=== PATIENT | male | born 1995 | race African-American/Black ===

== ENCOUNTER 2021-07-09 01:18 | Emergency (ER) | payer OTHER ==
[~2021-07-09] VITALS: Ht 190.5 cm; Wt 80.5 kg
[2021-07-09 01:59] LABS: BASOPHILS % (AUTO) 0.5 % (0.0-2.0); EOSINOPHILS % (AUTO) 1.7 % (1.0-6.0); HEMATOCRIT 42.4 % (41-53); HEMOGLOBIN 13.7 g/dL (13.5-17.5); LYMPHOCYTES # (AUTO) 2.2 K/uL (1.0-4.8); LYMPHOCYTES % (AUTO) 28.3 % (22.0-44.0); MEAN CORPUSCULAR HEMOGLOBIN 27.7 pg (26.0-34.0); MEAN CORPUSCULAR HGB CONC 32.4 G/dL (31.0-37.0); MEAN CORPUSCULAR VOLUME 86 fL (80-100); MONOCYTES # (AUTO) 0.6 K/uL (0.1-1.0); MONOCYTES % (AUTO) 7.6 % (2.0-9.0); NEUTROPHILS # (AUTO) 4.8 K/uL (1.8-7.7); NEUTROPHILS % (AUTO) 61.9 % (40.0-70.0); PLATELET COUNT (AUTO) 171 K/uL (150-450); RED BLOOD CELL COUNT(AUTO) 4.96 MIL/uL (4.50-5.90); RED CELL DISTRIBUTION WIDTH 15.1 % (11.5-14.5)
[2021-07-09 02:03] LABS: ANION GAP 12 mmol/L (8-16); CALCIUM, TOTAL 8.3 mg/dL (8.8-10.5); CARBON DIOXIDE 24 mmol/L (22-29); CHLORIDE 106 mmol/L (98-107); CREATININE 0.97 mg/dL (0.60-1.30); GLOMERULAR FILTR. RATE CALC > 60 mL/min (>60); GLUCOSE,RANDOM 77 mg/dL (70-110); POTASSIUM 3.5 mmol/L (3.5-5.1); SODIUM SERUM 142 mmol/L (136-145); UREA NITROGEN, BLOOD 8 mg/dL (7-18)
[2021-07-09 02:08] LABS: ALANINE AMINOTRANSFERASE 36 U/L (12-78); ALBUMIN 3.6 g/dL (3.4-5.0); ALKALINE PHOSPHATASE 103 U/L (46-116); ASPARTATE AMINOTRANSFERASE 43 U/L (15-37); BILIRUBIN,TOTAL 0.3 mg/dL (0.1-1.0); TOTAL PROTEIN, SERUM 6.9 g/dL (6.4-8.2)
[2021-07-09] MEDS ORDERED: PERTUSS(ACELL),DIPH,TET VAC/PF 0.5 ML SYRINGE IM. ONE (02:15)
[2021-07-09 05:42] VITALS: BP 120/20
== END 2021-07-09 06:23 | disposition home or self-care (01) ==
LOC: EMS 01:18
DX: F10.129 Alcohol abuse with intoxication, unspecified (principal); F17.210 Nicotine dependence, cigarettes, uncomplicated; Y90.6 Blood alcohol level of 120-199 mg/100 ml
CPT/HCPCS: 36415; 80053; 85025; 90471; 90715; 99283; G0480

== ENCOUNTER 2021-07-09 08:49 | Emergency (ER) | payer OTHER ==
[~2021-07-09] VITALS: Ht 170.2 cm; Wt 75.0 kg
[2021-07-09 08:50] VITALS: BP 138/72
[2021-07-09] MEDS ORDERED: AMMONIA 1 EA AMP IH ONE (09:18)
== END 2021-07-09 09:15 | disposition home or self-care (01) ==
LOC: EMS 09:01
DX: Z00.00 Encounter for general adult medical examination without abnormal findings (principal); F10.10 Alcohol abuse, uncomplicated; F17.210 Nicotine dependence, cigarettes, uncomplicated; Z59.0 Homelessness; Y90.9 Presence of alcohol in blood, level not specified
CPT/HCPCS: 99283

== ENCOUNTER 2024-01-31 07:15 | Inpatient (IN) | payer MEDICAID, OTHER ==
[~2024-01-31] VITALS: Ht 177.8 cm; Wt 81.0 kg
[2024-01-31 08:08] LABS: BASOPHILS % (AUTO) 0.6 % (0.0-2.0); EOSINOPHILS % (AUTO) 0.5 % (1.0-6.0); HEMATOCRIT 38.8 % (41-53); HEMOGLOBIN 12.8 g/dL (13.5-17.5); LYMPHOCYTES # (AUTO) 1.5 K/uL (1.0-4.8); LYMPHOCYTES % (AUTO) 11.7 % (22.0-44.0); MEAN CORPUSCULAR HEMOGLOBIN 27.2 pg (26.0-34.0); MEAN CORPUSCULAR HGB CONC 32.9 G/dL (31.0-37.0); MEAN CORPUSCULAR VOLUME 83 fL (80-100); MONOCYTES # (AUTO) 0.9 K/uL (0.1-1.0); MONOCYTES % (AUTO) 7.2 % (2.0-9.0); NEUTROPHILS # (AUTO) 10.5 K/uL (1.8-7.7); PLATELET COUNT (AUTO) 336 K/uL (150-450); RED CELL DISTRIBUTION WIDTH 14.4 % (11.5-14.5); WHITE BLOOD COUNT (AUTO) 13.1 K/uL (4.5-11.0)
[2024-01-31 08:18] LABS: ANION GAP 10 mmol/L (8-16); CARBON DIOXIDE 29 mmol/L (22-29); CHLORIDE 96 mmol/L (98-107); CREATININE 0.98 mg/dL (0.60-1.30); GLOMERULAR FILTR. RATE CALC > 60 mL/min (>60); GLUCOSE,RANDOM 67 mg/dL (70-110); POTASSIUM 4.7 mmol/L (3.5-5.1); SODIUM SERUM 135 mmol/L (136-145); UREA NITROGEN, BLOOD 15 mg/dL (7-18)
[2024-01-31 08:19] LABS: ALCOHOL, BLOOD (SERUM) < 3 mg/dL (0-10)
[2024-01-31 08:24] LABS: ALANINE AMINOTRANSFERASE 59 U/L (12-78); ALBUMIN 3.6 g/dL (3.4-5.0); ALKALINE PHOSPHATASE 171 U/L (46-116); ASPARTATE AMINOTRANSFERASE 40 U/L (15-37); BILIRUBIN,TOTAL 0.6 mg/dL (0.1-1.0); TOTAL PROTEIN, SERUM 8.4 g/dL (6.4-8.2)
[2024-01-31 08:25] LABS: COVID AG,FIA SOURCE NASAL SWAB
[2024-01-31] MEDS ORDERED: ZOLPIDEM TARTRATE 10 MG TABLET PO PRN (08:30)
[2024-01-31] MEDS: HALOPERIDOL LACTATE 5 MG/ML VIAL IM ONE (08:39)
[2024-01-31] MEDS: LORazepam 2 MG/ML VIAL IM ONE (08:40)
[2024-01-31] MEDS: DiphenhydrAMINE HCL 50 MG/ML VIAL IM ONE (08:40)
[2024-01-31 08:49] LABS: SARS-COV2 (COVID) ANTIGEN,FIA Negative (Negative)
[2024-02-01] MEDS ORDERED: ACETAMINOPHEN 500 MG TABLET ONE (00:17)
[2024-02-01] MEDS: ACETAMINOPHEN 500 MG TABLET PO ONE (00:20)
[2024-02-01] MEDS: LORazepam 2 MG TABLET PO PRN (00:20)
[2024-02-01] MEDS: HALOPERIDOL 5 MG TABLET PO PRN (00:20)
[2024-02-01] MEDS: SODIUM CHLORIDE 0.9% 2,450 ML IV ONE (03:45)
[2024-02-01] MEDS ORDERED: 0.9% SODIUM CHLORIDE 10 ML SYRINGE IVP PRN (03:45)
[2024-02-01 03:56] LABS: GLUCOMETER DEV NAME(LOC) ER.6; GLUCOSE,POINT OF CARE 119 MG/DL (70-110)
[2024-02-01 04:31] LABS: BASOPHILS % (AUTO) 0.5 % (0.0-2.0); EOSINOPHILS % (AUTO) 1.3 % (1.0-6.0); HEMATOCRIT 38.2 % (41-53); HEMOGLOBIN 12.7 g/dL (13.5-17.5); LYMPHOCYTES # (AUTO) 1.8 K/uL (1.0-4.8); LYMPHOCYTES % (AUTO) 15.7 % (22.0-44.0); MEAN CORPUSCULAR HEMOGLOBIN 27.3 pg (26.0-34.0); MEAN CORPUSCULAR HGB CONC 33.3 G/dL (31.0-37.0); MEAN CORPUSCULAR VOLUME 82 fL (80-100); MONOCYTES % (AUTO) 8.5 % (2.0-9.0); NEUTROPHILS # (AUTO) 8.5 K/uL (1.8-7.7); PLATELET COUNT (AUTO) 351 K/uL (150-450); RED BLOOD CELL COUNT(AUTO) 4.64 MIL/uL (4.50-5.90); RED CELL DISTRIBUTION WIDTH 14.4 % (11.5-14.5); WHITE BLOOD COUNT (AUTO) 11.5 K/uL (4.5-11.0)
[2024-02-01 04:42] LABS: INR 0.9 (0.9-1.1); PROTHROMBIN TIME 9.8 SEC (9.4-11.6)
[2024-02-01 04:49] LABS: TROPONIN I-HIGH SENSITIVITY 7 ng/L (<76)
[2024-02-01 04:50] LABS: LACTIC ACID 1.1 mmol/L (0.4-2.0)
[2024-02-01 04:53] LABS: B-TYPE NATRIURETIC PEPTIDE 5 pg/mL (0-100)
[2024-02-01 05:08] LABS: ALANINE AMINOTRANSFERASE 46 U/L (12-78); ALKALINE PHOSPHATASE 148 U/L (46-116); ASPARTATE AMINOTRANSFERASE 34 U/L (15-37); BILIRUBIN,TOTAL 0.2 mg/dL (0.1-1.0); CALCIUM, TOTAL 9.4 mg/dL (8.8-10.5); CHLORIDE 100 mmol/L (98-107); CREATINE KINASE, TOTAL ONLY 852 U/L (39-308); CREATININE 0.89 mg/dL (0.60-1.30); GLOMERULAR FILTR. RATE CALC > 60 mL/min (>60); GLUCOSE,RANDOM 106 mg/dL (70-110); POTASSIUM 4.3 mmol/L (3.5-5.1); SODIUM SERUM 136 mmol/L (136-145); TOTAL PROTEIN, SERUM 7.5 g/dL (6.4-8.2); UREA NITROGEN, BLOOD 14 mg/dL (7-18)
[2024-02-01 05:13] LABS: ANION GAP 8 mmol/L (8-16); CARBON DIOXIDE 28 mmol/L (22-29)
[2024-02-01] MEDS: LORazepam 2 MG/ML VIAL IM ONE (06:50)
[2024-02-01] MEDS: DiphenhydrAMINE HCL 50 MG/ML VIAL IM ONE (06:50)
[2024-02-01] MEDS: HALOPERIDOL LACTATE 5 MG/ML VIAL IM ONE (06:50)
[2024-02-01] MEDS ORDERED: SODIUM CHLORIDE 0.9% 100 ML ONE (07:54)
[2024-02-01] MEDS ORDERED: IOHEXOL 350 MG/ML 100 ML VIAL ONE (07:54)
[2024-02-01] MEDS: CEFTAROLINE 600 MG/D5W 250 ML IV ONE (12:18)
[2024-02-01] MEDS: PERTUSS(ACELL),DIPH,TET/PF 0.5 ML SYRINGE [ADULT] IM. ONE (12:33)
[2024-02-01 13:34] VITALS: BP 128/97; PULSE 99; RESP 20; TEMP 98.4
[2024-02-01] MEDS ORDERED: BISACODYL 10 MG RECTAL RECTAL SUPPOSITORY PR PRN (14:30)
[2024-02-01] MEDS ORDERED: ONDANSETRON HCL 4 MG/2 ML VIAL IVP PRN (14:30)
[2024-02-01] MEDS ORDERED: ZOLPIDEM TARTRATE 5 MG TABLET PO PRN (14:30)
[2024-02-01] MEDS ORDERED: MORPHINE SULFATE 2 MG/ML SYRINGE IVP PRN (14:30)
[2024-02-01] MEDS ORDERED: MAGNESIUM HYDROXIDE SUSPENSION 30 ML UDCUP PO PRN (14:30)
[2024-02-01] MEDS ORDERED: ACETAMINOPHEN 325 MG TABLET PO PRN (14:30)
[2024-02-01] MEDS: HEPARIN SODIUM,PORCINE 5,000 UNITS/ML VIAL SQ SCH (16:00)
[2024-02-01] MEDS: DOCUSATE SODIUM 100 MG CAPSULE PO SCH (20:26)
[2024-02-01] MEDS: HYDROCODONE/ACETAMINOPHEN 5-325 MG TABLET PO PRN (21:08)
[2024-02-02 01:49] VITALS: BP 141/91; PULSE 120; RESP 19; TEMP 98.3
[2024-02-02 07:24] LABS: AMPHET/METH SCREEN,URINE POSITIVE (NEGATIVE); BARBITURATE SCREEN, URINE NEGATIVE (NEGATIVE); BENZODIAZEPINES SCREEN,URINE NEGATIVE (NEGATIVE); CANNABINOID SCREEN,URINE NEGATIVE (NEGATIVE); COCAINE SCREEN,URINE NEGATIVE (NEGATIVE); METHADONE SCREEN, URINE NEGATIVE (NEGATIVE); OPIATE SCREEN,URINE POSITIVE (NEGATIVE); PH,URINE DRUG SCREEN 6.5 (5.0-8.0); PHENCYCLIDINE SCREEN,URINE NEGATIVE (NEGATIVE)
[2024-02-02 07:26] LABS: ALCOHOL, URINE DRUG SCREEN NEGATIVE (NEGATIVE)
[2024-02-02 07:56] VITALS: BP 134/73; PULSE 100; RESP 18; TEMP 97.6
[2024-02-02] MEDS: PANTOPRAZOLE SODIUM 40 MG DR TABLET PO SCH (08:28)
[2024-02-02] MEDS: AMOX TR/POT CLAV 875 MG/125 MG TABLET PO SCH (11:45)
[2024-02-02 15:21] VITALS: BP 143/90; PULSE 100; RESP 18; TEMP 97
[2024-02-02] MEDS ORDERED: DiphenhydrAMINE HCL 50 MG/ML VIAL ONE (18:13)
[2024-02-02] MEDS ORDERED: HALOPERIDOL LACTATE 5 MG/ML VIAL ONE ×2 (18:13→18:14)
[2024-02-02] MEDS ORDERED: LORazepam 2 MG/ML VIAL ONE (18:13)
[2024-02-02] MEDS: HALOPERIDOL LACTATE 5 MG/ML VIAL IM ONE (18:16)
[2024-02-02] MEDS: DiphenhydrAMINE HCL 50 MG/ML VIAL IM ONE (18:16)
[2024-02-02] MEDS: LORazepam 2 MG/ML VIAL IM ONE (18:16)
[2024-02-02 19:37] VITALS: BP 149/99; PULSE 100; RESP 20; TEMP 98.3
[2024-02-03] MEDS ORDERED: CHLORHEXIDINE GLUCONATE 4% 118 ML TOPICAL LIQUID TP SCH (11:30)
== END 2024-02-04 12:22 | disposition left against medical advice (07) | DRG 384 ==
LOC: EMS 07:16 → B3A 02-01 03:00 → UNDOADMIN 02-01 03:00 → 6S 02-01 12:05
PROVIDERS: ADMIT Internal Medicine; ATTEND Internal Medicine
DX: S01.00XA Unspecified open wound of scalp, initial encounter (principal); F11.90 Opioid use, unspecified, uncomplicated; F20.9 Schizophrenia, unspecified; F15.10 Other stimulant abuse, uncomplicated; F94.0 Selective mutism; X58.XXXA Exposure to other specified factors, initial encounter; Z53.20 Procedure and treatment not carried out because of patient's decision for unspecified reasons; Z53.29 Procedure and treatment not carried out because of patient's decision for other reasons; Z20.822 Contact with and (suspected) exposure to COVID-19; Z87.891 Personal history of nicotine dependence; Y93.89 Activity, other specified; Y92.89 Other specified places as the place of occurrence of the external cause; Y99.8 Other external cause status
CPT/HCPCS: 70470; 71045; 80053; 80307; 82550; 82962; 83605; 83880; 84145; 84484; 85025; 85610; 87040; 87070; 87186; 87205; 90715; 93005; 99285; G0480; J0712; J1200; J1630; J1644; J2060; J7030; J7050; Q9967; 36415-L1; 36415-TC

== ENCOUNTER 2024-03-31 15:20 | Inpatient (IN) | payer MEDICAID ==
[~2024-03-31] VITALS: Ht 172.7 cm; Wt 78.0 kg
[2024-03-31] MEDS ORDERED: ZOLPIDEM TARTRATE 10 MG TABLET PO PRN (20:00)
[2024-03-31] MEDS ORDERED: MAGNESIUM HYDROXIDE SUSPENSION 30 ML UDCUP PO PRN (20:00)
[2024-03-31] MEDS ORDERED: TUBERCULIN, PURIFIED PROTEIN DERIVATIVE 5 TU/0.1 ML SYRINGE ID ONE (20:00)
[2024-03-31] MEDS ORDERED: HydrOXYzine PAMOATE 50 MG CAPSULE PO PRN (20:00)
[2024-03-31] MEDS ORDERED: OLANZapine 5 MG RAPDIS TABLET PO PRN (20:00)
[2024-03-31] MEDS ORDERED: MAG HYDROX/ALUMINUM HYD/SIMETH ES 30 ML SUSPENSION UDCUP PO PRN (20:00)
[2024-03-31] MEDS ORDERED: ACETAMINOPHEN 325 MG TABLET PO PRN (20:00)
[2024-03-31] MEDS ORDERED: PROMETHAZINE HCL 25 MG TABLET PO PRN (20:00)
[2024-03-31] MEDS ORDERED: LORazepam 2 MG TABLET PO PRN (20:00)
[2024-03-31] MEDS ORDERED: GuaiFENesin/D-METHORPHAN [SUGAR-FREE] 200-20MG/10 ML SYRUP UDCUP PO PRN (20:00)
[2024-03-31] MEDS ORDERED: LOPERAMIDE HCL 2 MG CAPSULE PO PRN (20:00)
[2024-03-31] MEDS: DIVALPROEX SODIUM 500 MG ER TABLET PO SCH (21:00)
[2024-03-31 23:49] VITALS: RESP 18
[2024-04-01] MEDS: OMEGA-3/DHA/EPA/FISH OIL 1,000 MG CAPSULE PO SCH (09:00)
[2024-04-01] MEDS: FOLIC ACID 1 MG TABLET PO SCH (09:00)
[2024-04-01] MEDS: THIAMINE 100 MG TABLET PO SCH (09:00)
[2024-04-01] MEDS: NALTREXONE HCL 50 MG TABLET PO SCH (09:00)
[2024-04-01 09:12] VITALS: RESP 18
[2024-04-01] MEDS: MULTIVITAMINS WITH MINERALS, THERAPEUTIC TABLET PO SCH (11:48)
[2024-04-01] MEDS: LORazepam 2 MG/ML VIAL IM ONE (14:05)
[2024-04-01] MEDS: DiphenhydrAMINE HCL 50 MG/ML VIAL IM ONE (14:05)
[2024-04-01] MEDS: HALOPERIDOL LACTATE 5 MG/ML VIAL IM ONE (14:06)
[2024-04-01 20:21] VITALS: RESP 18
[2024-04-01] MEDS: MELATONIN 5 MG TABLET PO SCH (21:00)
[2024-04-01] MEDS: OLANZapine 5 MG RAPDIS TABLET PO SCH (21:00)
[2024-04-01] MEDS: CEPHALEXIN MONOHYDRATE 500 MG CAPSULE PO SCH (21:00)
[2024-04-02 18:03] VITALS: BP 112/63; PULSE 79; RESP 18; TEMP 98.1
[2024-04-03 08:12] VITALS: RESP 18
[2024-04-04 09:30] VITALS: RESP 16
[2024-04-04 20:48] VITALS: RESP 18
[2024-04-04] MEDS: PALIPERIDONE PALMITATE 234 MG/1.5 ML SYRINGE IM ONE (22:30)
[2024-04-05] MEDS: PALIPERIDONE PALMITATE 234 MG/1.5 ML SYRINGE IM ONE (09:00)
[2024-04-05 09:45] VITALS: RESP 18
[2024-04-05 20:15] VITALS: RESP 18
[2024-04-06 08:28] VITALS: RESP 18
[2024-04-06 21:05] VITALS: RESP 18
[2024-04-07 08:15] VITALS: RESP 18
[2024-04-07] MEDS: MUPIROCIN CALCIUM 2% 22 GM OINTMENT TP SCH (16:23)
[2024-04-07 21:02] VITALS: RESP 18
[2024-04-08 08:53] VITALS: RESP 18
[2024-04-08 21:07] VITALS: RESP 18
[2024-04-09] MEDS: PALIPERIDONE PALMITATE 156 MG/ML SYRINGE IM ONE (09:00)
[2024-04-09 09:28] VITALS: RESP 18
[2024-04-09 22:08] VITALS: RESP 18
[2024-04-10 09:07] VITALS: RESP 16
[2024-04-10 20:47] VITALS: RESP 18
[2024-04-11 09:03] VITALS: RESP 19
[2024-04-12 08:51] VITALS: RESP 18
[2024-04-13 08:53] VITALS: RESP 18
[2024-04-13 20:39] VITALS: RESP 18
[2024-04-14 08:47] VITALS: RESP 19
[2024-04-14 21:06] VITALS: RESP 18
[2024-04-15 08:38] VITALS: RESP 18
[2024-04-15 21:03] VITALS: RESP 18
[2024-04-16 13:23] VITALS: RESP 19
[2024-04-17 09:11] VITALS: RESP 18
[2024-04-18] MEDS ORDERED: PALI234D IM (09:52)
[2024-04-18] MEDS ORDERED: MELA5TAB40 PO (09:52)
[2024-04-18] MEDS ORDERED: DIVA500T69 PO (09:52)
[2024-04-18] MEDS ORDERED: NALT50TA33 PO (09:52)
[2024-04-18] MEDS ORDERED: OMEG-135 PO (09:52)
[2024-04-18] MEDS: PALIPERIDONE PALMITATE 234 MG/1.5 ML SYRINGE IM ONE (10:42)
[2024-04-18 12:05] VITALS: RESP 19
[2024-05-16] MEDS ORDERED: PALIPERIDONE PALMITATE 117 MG/0.75 ML SYRINGE IM SCH (09:00)
== END 2024-04-18 17:49 | disposition home or self-care (01) | DRG 750 ==
LOC: 3EC 22:45
PROVIDERS: ADMIT Psychiatry & Neurology Psychiatry; ATTEND Psychiatry & Neurology Psychiatry
PROC: GZHZZZZ Group Psychotherapy (ICD-10-PCS; principal; 2024-03-31)
PROC: GZ51ZZZ Individual Psychotherapy, Behavioral (ICD-10-PCS; 2024-03-31)
DX: F20.0 Paranoid schizophrenia (principal); G93.41 Metabolic encephalopathy; M62.82 Rhabdomyolysis; Z91.148 Patient's other noncompliance with medication regimen for other reason; F17.200 Nicotine dependence, unspecified, uncomplicated; D72.829 Elevated white blood cell count, unspecified; D64.9 Anemia, unspecified; J44.9 Chronic obstructive pulmonary disease, unspecified
CPT/HCPCS: 87070; 87186; 87205; J1200; J1630; J2060; Q9967

== ENCOUNTER 2024-04-20 16:20 | Inpatient (IN) | payer MEDICAID, OTHER ==
[~2024-04-20] VITALS: Ht 177.8 cm; Wt 80.7 kg
[~2024-04-20 16:20] MED LIST: DIVA500T69 PO; MELA5TAB40 PO; NALT50TA33 PO; OMEG-135 PO; PALI234D IM
[2024-04-20] MEDS: DiphenhydrAMINE HCL 50 MG/ML VIAL IM ONE (16:39)
[2024-04-20] MEDS: HALOPERIDOL LACTATE 5 MG/ML VIAL IM ONE (16:39)
[2024-04-20] MEDS: LORazepam 2 MG/ML VIAL IM ONE (16:39)
[2024-04-20 17:35] LABS: COVID AG,FIA SOURCE NPH
[2024-04-20 18:01] LABS: SARS-COV2 (COVID) ANTIGEN,FIA Negative (Negative)
[2024-04-20 18:25] LABS: BASOPHILS % (AUTO) 0.4 % (0.0-2.0); EOSINOPHILS % (AUTO) 0.6 % (1.0-6.0); HEMATOCRIT 36.6 % (41-53); HEMOGLOBIN 11.8 g/dL (13.5-17.5); LYMPHOCYTES # (AUTO) 1.9 K/uL (1.0-4.8); LYMPHOCYTES % (AUTO) 12.4 % (22.0-44.0); MEAN CORPUSCULAR HEMOGLOBIN 25.5 pg (26.0-34.0); MEAN CORPUSCULAR HGB CONC 32.2 G/dL (31.0-37.0); MEAN CORPUSCULAR VOLUME 79 fL (80-100); MONOCYTES # (AUTO) 1.3 K/uL (0.1-1.0); MONOCYTES % (AUTO) 8.3 % (2.0-9.0); NEUTROPHILS # (AUTO) 11.9 K/uL (1.8-7.7); NEUTROPHILS % (AUTO) 78.3 % (40.0-70.0); PLATELET COUNT (AUTO) 280 K/uL (150-450); RED BLOOD CELL COUNT(AUTO) 4.63 MIL/uL (4.50-5.90); RED CELL DISTRIBUTION WIDTH 15.6 % (11.5-14.5); WHITE BLOOD COUNT (AUTO) 15.2 K/uL (4.5-11.0)
[2024-04-20 18:38] LABS: ANION GAP 10 mmol/L (8-16); CALCIUM, TOTAL 9.5 mg/dL (8.8-10.5); CARBON DIOXIDE 25 mmol/L (22-29); CHLORIDE 97 mmol/L (98-107); CREATININE 0.93 mg/dL (0.60-1.30); GLOMERULAR FILTR. RATE CALC > 60 mL/min (>60); GLUCOSE,RANDOM 84 mg/dL (70-110); POTASSIUM 4.2 mmol/L (3.5-5.1); SODIUM SERUM 132 mmol/L (136-145); UREA NITROGEN, BLOOD 12 mg/dL (7-18)
[2024-04-20 18:43] LABS: ALANINE AMINOTRANSFERASE 63 U/L (12-78); ALBUMIN 3.4 g/dL (3.4-5.0); ALKALINE PHOSPHATASE 159 U/L (46-116); ASPARTATE AMINOTRANSFERASE 44 U/L (15-37); BILIRUBIN,TOTAL 0.5 mg/dL (0.1-1.0); TOTAL PROTEIN, SERUM 8.1 g/dL (6.4-8.2)
[2024-04-20 18:44] LABS: ALCOHOL, BLOOD (SERUM) < 3 mg/dL (0-10)
[2024-04-20 18:46] LABS: VALPROIC ACID < 3 mcg/mL (50-100)
[2024-04-20] MEDS ORDERED: MAGNESIUM HYDROXIDE SUSPENSION 30 ML UDCUP PO PRN (19:45)
[2024-04-20] MEDS ORDERED: MAG HYDROX/ALUMINUM HYD/SIMETH ES 30 ML SUSPENSION UDCUP PO PRN (19:45)
[2024-04-20] MEDS ORDERED: GuaiFENesin/D-METHORPHAN [SUGAR-FREE] 200-20MG/10 ML SYRUP UDCUP PO PRN (19:45)
[2024-04-20] MEDS ORDERED: HydrOXYzine PAMOATE 50 MG CAPSULE PO PRN (19:45)
[2024-04-20] MEDS ORDERED: LOPERAMIDE HCL 2 MG CAPSULE PO PRN (19:45)
[2024-04-20] MEDS ORDERED: LORazepam 2 MG TABLET PO PRN (19:45)
[2024-04-20] MEDS ORDERED: ZOLPIDEM TARTRATE 10 MG TABLET PO PRN (19:45)
[2024-04-20] MEDS ORDERED: PROMETHAZINE HCL 25 MG TABLET PO PRN (19:45)
[2024-04-20] MEDS: THIAMINE 100 MG TABLET PO SCH (21:25)
[2024-04-20] MEDS: MELATONIN 5 MG TABLET PO SCH (21:25)
[2024-04-20] MEDS: DIVALPROEX SODIUM 500 MG ER TABLET PO SCH (21:25)
[2024-04-21 01:29] VITALS: BP 114/62; PULSE 106; RESP 18; TEMP 98; O2SAT 98
[2024-04-21 01:30] VITALS: BP 114/62; PULSE 104; RESP 18; TEMP 98
[2024-04-21] MEDS: MULTIVITAMINS WITH MINERALS, THERAPEUTIC TABLET PO SCH (09:06)
[2024-04-21] MEDS: FOLIC ACID 1 MG TABLET PO SCH (09:06)
[2024-04-21] MEDS: OMEGA-3/DHA/EPA/FISH OIL 1,000 MG CAPSULE PO SCH (09:07)
[2024-04-21] MEDS: MUPIROCIN CALCIUM 2% 22 GM OINTMENT TP SCH (09:19)
[2024-04-21] MEDS: NALTREXONE HCL 50 MG TABLET PO SCH (09:22)
[2024-04-21 20:40] VITALS: RESP 18; O2SAT 98
[2024-04-22 09:47] VITALS: RESP 17
[2024-04-22 09:59] LABS: CREATINE KINASE, TOTAL ONLY 1421 U/L (39-308)
[2024-04-22] MEDS ORDERED: PALI117D IM (11:06)
[2024-04-22 21:43] VITALS: RESP 18
[2024-04-23] MEDS: DIVALPROEX SODIUM 500 MG ER TABLET PO SCH (08:37)
[2024-04-23 09:31] VITALS: RESP 18
[2024-04-23 20:48] VITALS: RESP 20
[2024-04-24 07:53] VITALS: RESP 18
[2024-04-24 08:29] VITALS: RESP 18
[2024-04-24] MEDS: PALIPERIDONE PALMITATE 156 MG/ML SYRINGE IM ONE (09:33)
[2024-04-24 21:31] VITALS: RESP 17; TEMP 97.9
[2024-04-25] MEDS ORDERED: PALI117D IM (10:05)
[2024-04-25] MEDS ORDERED: DIVA500T69 PO (10:05)
[2024-04-25 10:56] VITALS: RESP 19; TEMP 98
[2024-04-25] MEDS: PALIPERIDONE PALMITATE 156 MG/ML SYRINGE IM ONE (11:22)
[2024-05-18] MEDS ORDERED: PALIPERIDONE PALMITATE 117 MG/0.75 ML SYRINGE IM SCH (09:00)
== END 2024-04-25 15:53 | disposition home or self-care (01) | DRG 750 ==
LOC: EMS 16:20 → 3EC 23:35
PROVIDERS: ADMIT Psychiatry & Neurology Psychiatry; ATTEND Psychiatry & Neurology Psychiatry
PROC: GZHZZZZ Group Psychotherapy (ICD-10-PCS; principal; 2024-04-21)
PROC: GZ51ZZZ Individual Psychotherapy, Behavioral (ICD-10-PCS; 2024-04-21)
DX: F20.9 Schizophrenia, unspecified (principal); G93.41 Metabolic encephalopathy; E87.1 Hypo-osmolality and hyponatremia; F17.200 Nicotine dependence, unspecified, uncomplicated; D50.9 Iron deficiency anemia, unspecified; J44.9 Chronic obstructive pulmonary disease, unspecified; Z20.822 Contact with and (suspected) exposure to COVID-19; L03.811 Cellulitis of head [any part, except face]; Z59.00 Homelessness unspecified; Z91.199 Patient's noncompliance with other medical treatment and regimen due to unspecified reason
CPT/HCPCS: 80053; 80164; 82550; 85025; 99291; G0480; J1200; J1630; J2060; Q9967